=== PATIENT | male | born 1960 | race Caucasian/White ===

== ENCOUNTER 2017-01-10 22:48 | Emergency (ER) | payer OTHER ==
[~2017-01-10] VITALS: Ht 175.3 cm; Wt 108.9 kg
[~2017-01-10 22:48] MED LIST: HYDR-971 PO; HYDR25TA PO; ONDA4TAB10 SL; PRED20TA PO
--- NOTE | 2017-01-10 23:37 | ED.ADGEN ---
Past History Past Medical History: Bipolar, Other Past Surgical History: No Surgical History Smoking: Non-smoker Alcohol Use: Rarely Drug Use: None, Marijuana Adult General Chief Complaint Chief Complaint Upper eyelid swelling [facility] HPI This is a pleasant 56 showed male with history of bipolar disorder ADHD and depression who presents with a 2 day history of left upper eyelid swelling. He woke up from a nap when he felt some swelling to his upper eyelid he thought maybe he had scratched his eye was seen by his primary care doctor who prescribed him gentamicin ointment for suspected conjunctivitis despite being treated swelling and soft tissue itching gotten progressively worse. He noted increased redness and a localized lesion from a local envenomation from a bug bite. Patient denies any documented fevers but has had subjective chills. He is also a little tingling to his face over the soft tissue swelling is emanating from. He denies any direct trauma denies any visual loss denies any hearing loss denies any rash to his face. Patient denies any visual changes denies any oral lesions. He is also been on no oral antibiotics recently. Review of Systems Review of Systems Constitutional: He does state he has subjective fevers and chills. [] Eyes: . Soft tissue swelling above the eye without visual acuity changes. HENT: Denies nasal congestion or sore throat [] Respiratory: Denies cough or shortness of breath [] Cardiovascular: No additional information not addressed in HPI [] GI: Denies abdominal pain, nausea, vomiting, bloody stools or diarrhea [] : Denies dysuria or hematuria [] Musculoskeletal: Denies back pain or joint pain [] Integument: Denies rash or skin lesions [] Neurologic: Denies headache, focal weakness or sensory changes [] Endocrine: Denies polyuria or polydipsia [] Allergies Allergies Allergies Coded Allergies Type Severity Reaction Last Updated Verified ampicillin Allergy Intermediate Rash 01/30/15 Yes lithium Allergy Intermediate Hives 01/30/15 Yes Physical Exam Physical Exam Constitutional: Well developed, well nourished, slightly uncomfortable with noted soft tissue swelling superior to the left upper eyelid. HENT: Normocephalic, atraumatic, bilateral external ears normal, oropharynx moist, no oral exudates, nose normal. [] Eyes: PERRLA, EOMI, conjunctiva normal, noted erythema to the upper eyelid soft tissue swelling no obvious vesicles or tissue breakdown. He is a small lesion noted right above the eyelid that is not consistent with a stye. Patient has soft tissue swelling over the left appears zygoma as well is no proptosis Neck: Normal range of motion, no tenderness, supple, no stridor. [] Cardiovascular:Heart rate regular rhythm, no murmur [] Lungs & Thorax: Bilateral breath sounds clear to auscultation [] Abdomen: Bowel sounds normal, soft, no tenderness, no masses, no pulsatile masses. [] Skin: Is warm dry and intact without erythema. There is no Moura sign is no lesions to the inside of his ear. Back: No tenderness, no CVA tenderness. [] Extremities: No tenderness, no cyanosis, no clubbing, ROM intact, no edema. [] Neurologic: Alert and oriented X 3, normal motor function, normal sensory function, no focal deficits noted. [] Psychologic: Affect normal, judgement normal, mood normal. [] EKG EKG [] Radiology/Procedures Radiology/Procedures [] Course & Med Decision Making Course & Med Decision Making Pertinent Labs and Imaging studies reviewed. (See chart for details) Patient demonstrates early cellulitis to the upper eyelid on the left without evidence of periorbital cellulitis. There is no evidence of stye or internal ocular or eyelid infection associated meibomian glands. This is likely some associated with local envenomation from insect bite. Patient has mild paresthesias over the infraorbital nerve distribution. His oropharynx and TMs are clear there is no it's a concomitant vesicular disease. Abscess Patient be placed on oral antibiotics and pain medications and follow up with his primary care doctor in next 24-48 hours for wound care evaluation. Disposition discharged home in stable condition improved Final Impression Final Impression Facial cellulitis [] Problems: Dragon Disclaimer Dragon Disclaimer This electronic medical record was generated, in whole or in part, using a voice recognition dictation system. KRYSTAL VAZQUEZ MD Jan 10, 2017 23:37
[2017-01-10] MEDS ORDERED: DIPH25CA58 PO (23:54)
[2017-01-10] MEDS ORDERED: DOXY100C14 PO (23:54)
[2017-01-10] MEDS ORDERED: OLOP5DRO LEFTEYE (23:54)
[2017-01-11 00:11] VITALS: BP 140/94
== END 2017-01-11 00:06 | disposition home or self-care (01) ==
LOC: ER 22:48
DX: H00.034 Abscess of left upper eyelid (principal); F31.9 Bipolar disorder, unspecified; F90.9 Attention-deficit hyperactivity disorder, unspecified type; F12.10 Cannabis abuse, uncomplicated; Z88.1 Allergy status to other antibiotic agents; Z88.8 Allergy status to other drugs, medicaments and biological substances
CPT/HCPCS: 99283

== ENCOUNTER 2017-02-02 22:43 | Emergency (ER) | payer OTHER ==
[~2017-02-02] VITALS: Ht 175.3 cm; Wt 108.9 kg
[2017-02-02 22:43] VITALS: BP 151/100
[~2017-02-02 22:43] MED LIST changes: +DIPH25CA58 PO; +DOXY100C14 PO; +OLOP5DRO LEFTEYE
--- NOTE | 2017-02-02 23:27 | PHYS DOC ---
Past History Past Medical History: Bipolar, Depression Past Surgical History: No Surgical History Smoking: Non-smoker Alcohol Use: None Drug Use: Marijuana Adult General Chief Complaint Chief Complaint: INSECT BITE HPI HPI Patient is a 56 year old male who presents with skin problem. The patient states about 10 minutes prior to arrival he noticed a black spot on his left thigh & thought he had a tick attached to his leg. He attempted to burn it with a car rider but could not remove it. Denies fevers/chills, vomiting, erythema, warmth, swelling. Review of Systems Review of Systems Constitutional: Denies fever or chills HENT: Denies nasal congestion or sore throat Respiratory: Denies cough Cardiovascular: Denies chest pain GI: Denies abdominal pain, nausea, vomiting Musculoskeletal: Denies back pain or joint pain Integument: Reports insect bite Neurologic: Denies headache Allergies Allergies Allergies Coded Allergies Type Severity Reaction Last Updated Verified ampicillin Allergy Intermediate Rash 01/30/15 Yes lithium Allergy Intermediate Hives 01/30/15 Yes Physical Exam Physical Exam Constitutional: obese, no acute distress, non-toxic appearance. HENT: Normocephalic, atraumatic, bilateral external ears normal, oropharynx moist, nose normal. Eyes: conjunctiva normal, no discharge. Cardiovascular: no edema. Lungs & Thorax: no respiratory distress. Abdomen: nondistended. Skin: left thigh medially there is a skin tag with dark lesion, no insect visualized but skin appears burned. could be underlying mole. Extremities: No deformity Neurologic: Alert and oriented X 3 Current Patient Data Vital Signs Vital Signs Date Time Temp Pulse Resp B/P (MAP) Pulse Ox O2 Delivery O2 Flow Rate FiO2 02/02/17 22:43 98.0 90 18 97 Room Air EKG EKG [] Radiology/Procedures Radiology/Procedures [] Course & Med Decision Making Course & Med Decision Making Pertinent Labs and Imaging studies reviewed. (See chart for details) Patient concerned that he has a tick on his thigh. Certainly there is evidence of burn to the skin, but I do not visualize an insect that could be removed. Suspect possibly underlying mole. Recommend wound care with triple antibiotic, nonadherent dressing to prevent friction. Follow up with primary care, might need removal or biopsy. The patient is being discharged home in stable condition. [] Dragon Disclaimer Dragon Disclaimer This chart was dictated in whole or in part using Voice Recognition software in a busy, high-work load, and often noisy Emergency Department environment. It may contain unintended and wholly unrecognized errors or omissions. Departure Departure: Impression: Primary Impression: Skin tag Disposition: 01 HOME, SELF-CARE Condition: STABLE Referrals: MARQUEZ JOSÉ DO (PCP) Patient Instructions: Burn Care, [id number] Additional Instructions: You were seen in the emergency department today for burn & skin tag. Please keep clean & dry, apply triple antibiotic ointment twice daily, wear a bandage to protect from friction. Follow up with your primary care doctor. You might need a biopsy if there is a new mole on this area. Come back for hot/red/ swollen skin or any otherwise worsening condition. CADEN RENE MD February 02, 2017 23:27
== END 2017-02-02 23:30 | disposition home or self-care (01) ==
LOC: ER 22:43
DX: L91.8 Other hypertrophic disorders of the skin (principal); F12.10 Cannabis abuse, uncomplicated; F31.9 Bipolar disorder, unspecified; Z88.8 Allergy status to other drugs, medicaments and biological substances
CPT/HCPCS: 99281

== ENCOUNTER 2017-03-29 02:27 | Emergency (ER) | payer OTHER ==
[~2017-03-29] VITALS: Ht 175.3 cm; Wt 126.1 kg
[2017-03-29 02:35] VITALS: BP 125/84
--- NOTE | 2017-03-29 03:11 | PHYS DOC ---
General Chief Complaint: LOWER BACK PAIN OR INJURY Stated Complaint: BACK INJURY Time Seen by MD: 02:30 Source: patient Exam Limitations: no limitations Problems: History of Present Illness Initial Comments Patient is a 56-year-old male who comes to the ED private auto complaining of low back pain. 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 He states that while playing his guitar he was dancing and while doing so twisted his torso causing a pulling sensation and discomfort at his left low back. He says he assumed it was a muscle and it would improve however states that it has not gotten any better and currently complains of 7 out of 10 left-sided low back pain described as sharp and stabbing and worse with certain movements relieved somewhat by rest. Denies any other trauma no leg weakness no saddle anesthesia or incontinence. Patient has history of marijuana abuse but is currently on probation and denies recent use. [id number]-stmdusp medications have not helped. Timing/Duration: 1 week Severity: severe Modifying Factors: worse with movement, improves with rest Associated Symptoms: other Allergies: Coded Allergies: ampicillin (Verified Allergy, Intermediate, Rash, 03/29/17) lithium (Verified Allergy, Intermediate, Hives, 03/29/17) Past Medical History Medical History: other (insomnia, bipolar disorder, ADHD, glaucoma, questionable sleep apnea) Surgical History: noncontributory Social History Smoker: non-smoker Alcohol: none Drugs: marijuana (on probation, no current usage due to testing with probation) Review of Systems Constitutional: denies chills, denies diaphoresis, denies fever, denies malaise Respiratory: denies cough, denies shortness of breath Cardiovascular: denies chest pain, denies palpitations Gastrointestinal: denies diarrhea, denies nausea, denies vomiting Genitourinary: denies dysuria, denies frequency, denies hematuria Musculoskeletal: see HPI, denies joint swelling, denies neck pain Psychiatric/Neurological: denies headache, denies numbness, denies paresthesia , denies pre-existing deficit, denies tingling, denies weakness Hematologic/Lymphatic: denies blood clots, denies easy bleeding, denies easy bruising Physical Exam General Appearance: no apparent distress, obese Ear, Nose, Throat: normal ENT inspection, normal pharynx Neck: non-tender, supple Respiratory: normal breath sounds, no respiratory distress Cardiovascular: normal peripheral pulses, regular rate, rhythm Gastrointestinal: non tender, soft Back: no CVA tenderness, no vertebral tenderness Extremities: non-tender, normal inspection Neurologic/Psychiatric: conference services coordinator II-XII nml as tested, no motor/sensory deficits, alert, normal mood/affect, oriented x 3, other (DTRs/strength/sensory equal and intact bilaterally lower extremity, negative straight leg raise bilaterally) Skin: normal color, warm/dry Orders, Labs, Meds Patient agrees imaging not indicated as no trauma. Toradol and Norflex given in the emergency department. Patient requests discharge prior to medication efficacy and was given a Tylenol 3 starter pack for very short-term use should he need breakthrough medications overnight. He agrees to early PCP follow-up and expresses agreement and understanding of the treatment plan. Departure Time of Disposition: 03:08 Disposition: 01 HOME, SELF-CARE Diagnosis: low back strain Condition: GOOD Patient Instructions: Low Back Strain with Rehab-SportsMed Additional Instructions: Rest, activity as tolerated. Heating pad to affected area 15-20 minutes 4-6 times daily followed by gentle stretching. OTC tylenol/ibuprofen as needed. Rx: prednisone, cyclobenzaprine Follow up with your doctor later today if not better. Return to ED with new or changing symptoms. MIREILLE PULIDO DO Mar 29, 2017 03:11
[2017-03-29] MEDS ORDERED: ORPHENADRINE CITRATE 60 MG/2 ML VIAL. IM ONE (03:30)
[2017-03-29] MEDS ORDERED: KETOROLAC 60 MG/2 ML VIAL. IM ONE (03:30)
[2017-03-29] MEDS ORDERED: ACETAMINOPHEN/CODEINE 300/30MG TABLET PO ONE (03:30)
== END 2017-03-29 03:34 | disposition home or self-care (01) ==
LOC: ER 02:27
DX: S39.012A Strain of muscle, fascia and tendon of lower back, initial encounter (principal); G47.00 Insomnia, unspecified; F90.9 Attention-deficit hyperactivity disorder, unspecified type; F31.9 Bipolar disorder, unspecified; F12.10 Cannabis abuse, uncomplicated; H40.9 Unspecified glaucoma; Z88.1 Allergy status to other antibiotic agents; Z88.8 Allergy status to other drugs, medicaments and biological substances; X58.XXXA Exposure to other specified factors, initial encounter; Y93.41 Activity, dancing; Y99.8 Other external cause status; Y92.89 Other specified places as the place of occurrence of the external cause
CPT/HCPCS: 96372; 99284; J1885; J2360

== ENCOUNTER → 2017-09-11 | Outpatient (CLI) | payer OTHER ==
--- NOTE | 2017-09-11 15:23 | RAD ---
Sonography of the right buttock Clinical indications: The patient had a splinter in the right buttock 5 years ago. The patient pulled the splinter out and thinks a little piece may still remain in the right buttock area. One week ago, a pimple developed in that same area. There is some pain associated with this pimple but no drainage is evident. Findings: High-resolution sonography of the area of clinical concern of the right buttock over the region of the pimple was performed. No subcutaneous abscess or fluid collection is seen. No echodensity with acoustic shadowing is seen to indicate definite foreign body by sonography. IMPRESSION: Unremarkable study.
== END | disposition home or self-care (01) ==
LOC: US 10:02
PROVIDERS: ATTEND General Practice
DX: L03.317 Cellulitis of buttock (principal); F12.10 Cannabis abuse, uncomplicated
CPT/HCPCS: 76881

== ENCOUNTER 2018-01-18 16:16 | Emergency (ER) | payer OTHER ==
[~2018-01-18] VITALS: Ht 175.3 cm; Wt 126.1 kg
[2018-01-18 16:17] VITALS: BP 134/89
--- NOTE | 2018-01-20 00:16 | ED.ADGEN ---
Past History Past Medical History: Bipolar, Other Past Surgical History: No Surgical History Smoking: Non-smoker Alcohol Use: Rarely Drug Use: None Adult General Chief Complaint Chief Complaint Skin rash HPI HPI Patient is a 57-year-old male with history of bipolar presents with recent tick bite 3 days ago to left proximal thigh and discovered and light annular rash surrounding tick bite noticed today. No fever chills, arthralgias, sore throat. Patient believes to be embedded no longer than several hours. Patient successfully removed take after was discovered. No other symptoms or complaints [] Review of Systems Review of Systems Review symptoms as per history of present illness. All other review symptoms are negative. All other systems were reviewed and found to be within normal limits, except as documented in this note. Allergies Allergies Allergies Coded Allergies Type Severity Reaction Last Updated Verified ampicillin Allergy Intermediate Rash 03/29/17 Yes lithium Allergy Intermediate Hives 03/29/17 Yes Physical Exam Physical Exam Constitutional: Well developed, well nourished, no acute distress, non-toxic appearance. [] HENT: Normocephalic, atraumatic, bilateral external ears normal, oropharynx moist, no oral exudates, nose normal. [] Eyes: PERRLA, EOMI, conjunctiva normal, no discharge. [] Neck: Normal range of motion, no tenderness, supple, no stridor. [] Cardiovascular:Heart rate regular rhythm, no murmur [] Lungs & Thorax: Bilateral breath sounds clear to auscultation [] Skin: Left proximal medial thigh, 2 red macules consistent with tick bites. Distal macules surrounded by light annular rash approximately 2 cm in diameter. No induration, streaking or drainage. No embedded tick parts identified. [] [] Extremities: No tenderness, no cyanosis, no clubbing, ROM intact, no edema. [] Neurologic: Alert and oriented X 3, normal motor function, normal sensory function, no focal deficits noted. [] Psychologic: Affect normal, judgement normal, mood normal. [] Current Patient Data Vital Signs Vital Signs Date Time Temp Pulse Resp B/P (MAP) Pulse Ox O2 Delivery O2 Flow Rate FiO2 01/18/18 16:17 98.0 78 16 97 Room Air EKG EKG [] Radiology/Procedures Radiology/Procedures [] Course & Med Decision Making Course & Med Decision Making Pertinent Labs and Imaging studies reviewed. (See chart for details) [Recent tick bite with annular rash. Empiric antibiotics prescribed. Recommendations are for her PCP follow-up.] Final Impression Final Impression [1. tick bite, left thigh 2. rash] Problems: Dragon Disclaimer Dragon Disclaimer This electronic medical record was generated, in whole or in part, using a voice recognition dictation system. ERIC CORREA DO January 20, 2018 00:16
== END 2018-01-18 16:55 | disposition home or self-care (01) ==
LOC: ER 16:16
DX: S70.362A Insect bite (nonvenomous), left thigh, initial encounter (principal); R21 Rash and other nonspecific skin eruption; F31.9 Bipolar disorder, unspecified; Z88.8 Allergy status to other drugs, medicaments and biological substances; W57.XXXA Bitten or stung by nonvenomous insect and other nonvenomous arthropods, initial encounter; Y93.89 Activity, other specified; Y99.8 Other external cause status; Y92.89 Other specified places as the place of occurrence of the external cause
CPT/HCPCS: 99283

== ENCOUNTER 2018-07-22 17:34 | Emergency (ER) | payer OTHER ==
[~2018-07-22] VITALS: Ht 175.3 cm; Wt 117.9 kg
[2018-07-22 17:53] VITALS: BP 156/110
[2018-07-22] MEDS ORDERED: HYDR-2758 PO (18:18)
[2018-07-22] MEDS ORDERED: MELO7.5T5 PO (18:18)
[2018-07-22] MEDS ORDERED: CYCL-331 PO (18:18)
--- NOTE | 2018-07-22 18:21 | PHYS DOC ---
Adult General Chief Complaint Chief Complaint back pain HPI HPI 58 years old gentleman presented emergency department with back pain described sharp constant pain in the right side after lifting about 25 pounds week ago pain worse on exertion related to the right lower leg no numbness or weakness Review of Systems Review of Systems Constitutional: Denies fever or chills [] Eyes: Denies change in visual acuity, redness, or eye pain [] HENT: Denies nasal congestion or sore throat [] Respiratory: Denies cough or shortness of breath [] Cardiovascular: No additional information not addressed in HPI [] GI: Denies abdominal pain, nausea, vomiting, bloody stools or diarrhea [] : Denies dysuria or hematuria [][] Integument: Denies rash or skin lesions [] Neurologic: Denies headache, focal weakness or sensory changes [] Endocrine: Denies polyuria or polydipsia [] All other systems were reviewed and found to be within normal limits, except as documented in this note. Current Medications Current Medications Current Medications Medications (Trade) Dose Ordered Sig/Violetta Start Time Stop Time Status Last Admin Dose Admin Ketorolac Tromethamine (Toradol Im) 60 mg 1X ONCE 07/22/18 18:30 1118 18:31 Morphine Sulfate (Morphine 10mg Syringe) 10 mg 1X ONCE 07/22/18 18:30 07/22/18 18:31 Allergies Allergies Allergies Coded Allergies Type Severity Reaction Last Updated Verified ampicillin Allergy Intermediate Rash 03/29/17 Yes lithium Allergy Intermediate Hives 03/29/17 Yes Physical Exam Physical Exam Constitutional: Well developed, well nourished, no acute distress, non-toxic appearance. [] HENT: Normocephalic, atraumatic, bilateral external ears normal, oropharynx moist, no oral exudates, nose normal. [] Eyes: PERRLA, EOMI, conjunctiva normal, no discharge. [] Neck: Normal range of motion, no tenderness, supple, no stridor. [] Cardiovascular:Heart rate regular rhythm, no murmur [] Lungs & Thorax: Bilateral breath sounds clear to auscultation [] Abdomen: Bowel sounds normal, soft, no tenderness, no masses, no pulsatile masses. [] Skin: Warm, dry, no erythema, no rash. [] Back: tenderness lumbar area no CVA tenderness. [] Extremities: No tenderness, no cyanosis, no clubbing, ROM intact, no edema. [] Neurologic: Alert and oriented X 3, normal motor function, normal sensory function, no focal deficits noted. [] Psychologic: Affect normal, judgement normal, mood normal. [] Current Patient Data Vital Signs Vital Signs Date Time Temp Pulse Resp B/P (MAP) Pulse Ox O2 Delivery O2 Flow Rate FiO2 07/22/18 17:53 98.5 86 18 98 Room Air EKG EKG [] Radiology/Procedures Radiology/Procedures [] Course & Med Decision Making Course & Med Decision Making Pertinent Labs and Imaging studies reviewed. (See chart for details) [] Final Impression Final Impression Patient to follow-up with his primary care provider with MRI[] Problems: (1) Sciatica of right side Dragon Disclaimer Dragon Disclaimer This electronic medical record was generated, in whole or in part, using a voice recognition dictation system. NHAN NGUYEN MD Jul 22, 2018 18:21
[2018-07-22] MEDS ORDERED: KETOROLAC 60 MG/2 ML VIAL. IM ONE (18:30)
[2018-07-22] MEDS ORDERED: MORPHINE SULFATE 10 MG/ML SYRINGE. IM ONE (18:30)
== END 2018-07-22 18:41 | disposition home or self-care (01) ==
LOC: ER 17:34
DX: M54.41 Lumbago with sciatica, right side (principal); Z88.1 Allergy status to other antibiotic agents; Z88.8 Allergy status to other drugs, medicaments and biological substances
CPT/HCPCS: 96372; 99284; J1885; J2270

== ENCOUNTER → 2018-09-25 | Outpatient (CLI) | payer OTHER ==
[~2018-09-25] MED LIST changes: +CYCL-331 PO; +HYDR-2155 PO; +HYDR-3165 PO; -HYDR-971 PO; +MELO7.5T5 PO
--- NOTE | 2018-09-25 15:46 | RAD ---
Examination: 2 views of the right knee and 5 views of the lumbar spine HISTORY: History of chronic right knee pain, low back pain, radiculopathy COMPARISON: None available FINDINGS: There is mild joint space loss identified in the medial, lateral, patellofemoral compartments. There is no acute fracture or dislocation identified. The lumbar vertebral body heights are maintained. Mild intervertebral disc height loss identified in the lower thoracic and in the lumbar spine. No evidence of listhesis identified. The facets are well aligned. IMPRESSION: 1. Mild degenerative changes lumbar spine. 2. Mild tricompartmental degenerative changes right knee Electronically signed by: Jonnie Callejas MD (09/25/2018 3:42 PM) [id number]
== END | disposition home or self-care (01) ==
LOC: RAD 15:13
DX: M47.26 Other spondylosis with radiculopathy, lumbar region (principal); M17.11 Unilateral primary osteoarthritis, right knee
CPT/HCPCS: 72110; 73560

== ENCOUNTER 2020-11-06 12:41 | Emergency (ER) | payer OTHER ==
[~2020-11-06] VITALS: Ht 175.3 cm; Wt 123.0 kg
[2020-11-06] MEDS ORDERED: HYDR25CA75 PO (13:02)
[2020-11-06] MEDS ORDERED: CEPH500T PO (13:02)
--- NOTE | 2020-11-06 13:02 | PHYS DOC ---
Past History Past Medical History: Bipolar, Other Additional Past Medical Histor: ADHD Past Surgical History: No Surgical History Smoking: Non-smoker Alcohol Use: Rarely Drug Use: None Adult General Chief Complaint Chief Complaint: INSECT BITE HPI HPI Patient is a 60-year-old male presents emergency department complaining of "I think I have a spider bite ". Patient states that he was at his friend's house petting his friend's dog and noticed a bite nika on his left distal forearm and right middle finger knuckle. Patient is concerned that he may have been bitten by a brown recluse spider or may be a flea bite. Patient states the areas itch, denies any drainage from either bite site of concern, denies pain at the bite site stating that itchy and red. Patient denies any numbness or tingling. Patient denies any swelling of his extremities. Patient denies any other rashes of the skin. Patient denies any shortness of breath, chest pain, cough, congestion. Patient denies any nausea, vomiting, or diarrhea. Patient does not recall seeing any insects nor spiders actually bite him. Patient states that he did not start itching until he went home that Saturday night. Patient denies any other physical complaints or physical concerns. Patient denies being a cigarette smoker, denies drinking alcohol, denies illicit drug use. Patient states he only takes Ritalin for ADHD. Patient reports a allergy to ampicillin and lithium. Review of Systems Review of Systems 14 body systems of review of systems have been reviewed. See HPI for pertinent positives and negative responses, otherwise all other systems are negative, nonpertinent or noncontributory. Allergies Allergies Allergies Coded Allergies Type Severity Reaction Last Updated Verified ampicillin Allergy Intermediate Rash 03/29/17 Yes lithium Allergy Intermediate Hives 03/29/17 Yes Physical Exam Physical Exam Constitutional: Well developed, well nourished, no acute distress, non-toxic appearance. HENT: Normocephalic, atraumatic, bilateral external ears normal, oropharynx moist, no oral exudates, nose normal. Eyes: PERRLA, EOMI, conjunctiva normal, no discharge. Neck: Normal range of motion, no tenderness, supple, no stridor. Cardiovascular:Heart rate regular rhythm, no murmur Lungs & Thorax: Bilateral breath sounds clear to auscultation Abdomen: Bowel sounds normal, soft, no tenderness, no masses, no pulsatile masses. Skin: Warm, dry, no erythema, no rash. Except for patient's left distal medial forearm just proximal to the ulnar stylus process there is a 2 cm in diameter area of erythema, nondraining cellulitic in nature, no central punctum, no purulence. Patient complains of pruritus. Also right middle finger dorsal aspect at MIP joint 1 cm in diameter area of erythema, no central punctum, no drainage, no swelling, patient complains of pruritus. Back: No tenderness, no CVA tenderness. [] Extremities: No tenderness, no cyanosis, no clubbing, ROM intact, no edema. [] Neurologic: Alert and oriented X 3, normal motor function, normal sensory function, no focal deficits noted. [] Psychologic: Affect normal, judgement normal, mood normal. [] Current Patient Data Vital Signs Vital Signs Date Time Temp Pulse Resp B/P (MAP) Pulse Ox O2 Delivery O2 Flow Rate FiO2 11/06/20 12:41 79.9 64 16 125/72 (89) 99 Room Air EKG EKG [] Radiology/Procedures Radiology/Procedures [] Heart Score Risk Factors: Risk Factors: DM, Current or recent (<one month) smoker, HTN, HLP, family history of CAD, obesity. Risk Scores: Risk Factors: DM, Current or recent (<one month) smoker, HTN, HLP, family history of CAD, obesity. Course & Med Decision Making Course & Med Decision Making Pertinent Labs and Imaging studies reviewed. (See chart for details) 60-year-old male, vital signs reviewed, presents emergency department complaining of insect bite or spider bite to his extremities. Physical examination concerning for cellulitic process, consistent with insect bite, there was no fluctuant abscess appreciated, no draining. Patient's complaint of pruritus, discussed with patient will start on Keflex 4 times a day for cellulitic areas and also prescribe hydroxyzine for itching. Patient gave verbal understanding of discharge home instructions, antibiotic use, hydroxyzine medication use, follow-up with primary care soon for ongoing problems, return to ER precautions or concerns. Patient discharged home without incident. Dragon Disclaimer Dragon Disclaimer This electronic medical record was generated, in whole or in part, using a voice recognition dictation system. Departure Departure: Impression: Primary Impression: Cellulitis Additional Impressions: Insect bite Itching with irritation Disposition: 01 DC HOME SELF CARE/HOMELESS Condition: GOOD Referrals: STONEY CHOI (PCP) Patient Instructions: Cellulitis Additional Instructions: Please take medications as prescribed, follow-up with your primary care doctor for ongoing symptoms, return to the emergency department for worsening symptoms or other concerns. EMERGENCY DEPARTMENT GENERAL DISCHARGE INSTRUCTIONS Thank you for coming to [facility] (ED) today and trusting us with you care. We trust that you had a positivie experience in our Emergency Department. If you wish to speak to the department management, you may call the director at [phone]. YOUR FOLLOW UP INSTRUCTIONS ARE FOLLOWS: 1. Do you have a private Doctor? If you do not have a private doctor, please ask for a resource list of physicians or clinics that may be able to assist you with follow up care. 2. The Emergency Physician has interpreted your x-rays. The X-Ray specialist will also review them. If there is a change in the findings, you will be notified in 48 hours when at all possible. 3. A lab test or culture has been done, your results will be reviewed and you will be notified if you need a change in treatment. ADDITIONAL INSTRUCTIONS AND INFORMATION: 1. Your care today has been supervised by a physician who is specially trained in emergency care. Many problems require more than one evaluation for a complete diagnosis and treatment. We recommend that you schedule your follow up appointment as recommended to ensure complete treatment of you illness or injury. If you are unable to obtain follow up care and continue to have a problem, or if your condition worsens, we recommend that you return to the ED. 2. We are not able to safely determine your condition over the phone nor are we able to give sound medical advice over the phone. For these safety reasons, if you call for medical advice we will ask you to come to the ED for further evaluation. 3. If you have any questions regarding these discharge instructions please call the ED at [phone]. SAFETY INFORMATION: In the interest of safety, wellness, and injury prevention; we encourage you to wear your sealbelt, if you smoke; quite smoking, and we encourage family to use a protective helmet for bicycling and other sporting events that present an increased risk for head injury. IF YOUR SYMPTOMS WORSEN OR NEW SYMPTOMS DEVELOP, OR YOU HAVE CONCERNS ABOUT YOUR CONDITION; OR IF YOUR CONDITION WORSENS WHILE YOU ARE WAITING FOR YOUR FOLLOW UP APPOINTMENT; EITHER CONTACT YOUR PRIMARY CARE DOCTOR, THE PHYSICIAN WHOSE NAME AND NUMBER YOU WERE GIVEN, OR RETURN TO THE ED IMMEDIATELY. Scripts Hydroxyzine Pamoate (HYDROXYZINE PAMOATE) 25 Mg Capsule 25 MG PO PRN Q6-8HRS PRN for ITCHING, #15 CAP 0 Refills Prov: NABILA CORDOVA APRN 11/06/20 Cephalexin (CEPHALEXIN) 500 Mg Tablet 1 TAB PO QID for SKIN INFECTION, #40 TAB 0 Refills Prov: NABILA CORDOVA APRN 11/06/20 Problem Qualifiers Primary Impression: Cellulitis Site of cellulitis: extremity Site of cellulitis of extremity: upper extremity Laterality: left Qualified Codes: L03.114 - Cellulitis of left upper limb Additional Impressions: Insect bite Encounter type: initial encounter Site of insect bite: forearm Laterality: left Qualified Codes: S50.862A - Insect bite (nonvenomous) of left forearm, initial encounter; W57.XXXA - Bitten or stung by nonvenomous insect and other nonvenomous arthropods, initial encounter NABILA CORDOVA APRN Nov 06, 2020 13:02
== END 2020-11-06 13:04 | disposition home or self-care (01) ==
LOC: ER 12:41
DX: S50.862A Insect bite (nonvenomous) of left forearm, initial encounter (principal); L03.114 Cellulitis of left upper limb; Z88.1 Allergy status to other antibiotic agents; Z88.8 Allergy status to other drugs, medicaments and biological substances; W57.XXXA Bitten or stung by nonvenomous insect and other nonvenomous arthropods, initial encounter; Y93.89 Activity, other specified; Y92.89 Other specified places as the place of occurrence of the external cause; Y99.8 Other external cause status
CPT/HCPCS: 99283

== ENCOUNTER 2021-07-26 13:41 | Emergency (ER) | payer OTHER ==
[~2021-07-26] VITALS: Ht 175.3 cm; Wt 123.0 kg
[~2021-07-26 13:41] MED LIST changes: +CEPH500T PO; -CYCL-331 PO; +CYCL10TA19 PO; +DOXY-181 PO; -DOXY100C14 PO; +HYDR25CA75 PO
[2021-07-26 13:49] VITALS: BP 148/103
[2021-07-26] MEDS: KETOROLAC 60 MG/2 ML VIAL. IM ONE (14:24)
[2021-07-26] MEDS: ORPHENADRINE CITRATE 60 MG/2 ML VIAL. IM ONE (14:24)
--- NOTE | 2021-07-26 15:03 | RAD ---
EXAM: AP pelvis, AP and lateral views right hip DATE: 07/26/2021 2:22 PM INDICATION: Reason: fall [id number] / Spl. Instructions: / History: . COMPARISON: No Prior FINDINGS: No evidence of acute fracture or dislocation. Joint spaces are preserved without significant degenera tive/proliferative change. No pubic symphysis or SI joint diastases. IMPRESSION: 1. No acute fracture or dislocation. If there is persistent clinical concern for fracture, follow-up radiographs in 10-14 days is recommended. Electronically signed by: Abelino Holden MD (07/26/2021 3:01 PM) [id number]
--- NOTE | 2021-07-26 15:05 | RAD ---
EXAM: AP, oblique, lateral and sunrise views of the right knee. DATE: 07/26/2021 2:22 PM INDICATION: Reason: fall [id number] / Spl. Instructions: / History: COMPARISON: No Prior FINDINGS: No acute fracture or dislocation. Joint spaces are preserved. Small tricompartmental osteophytes. Arben tral patellar tracking. IMPRESSION: No acute fracture or dislocation. Electronically signed by: Abelino Holden MD (07/26/2021 3:02 PM) [id number]
[2021-07-26] MEDS ORDERED: ORPH-16 PO (15:38)
--- NOTE | 2021-07-26 15:38 | PHYS DOC ---
Past History Past Medical History: Bipolar, Other Additional Past Medical Histor: ADHD, chronic pain (RASHAUN JAMES) Past Surgical History: No Surgical History (RASHAUN JAMES) Smoking: Non-smoker Alcohol Use: Occasionally Drug Use: None (RASHAUN JAMES) General Adult EDM: Chief Complaint: KNEE INJURY HPI: HPI: Patient is a 61 year old male who presents with right hip and right knee pain for the past month. Patient states that his pain has made it difficult for him to ambulate, but he is able to do so. Patient went fishing about 1 month ago and fell onto his right side. He has seen his primary care provider about this pain, but did not include the history of falling during his evaluation. He was told by his primary care provider that it was likely due to sciatica. He was instructed to see a pain specialist. Patient has no other complaints at this time. (RASHAUN JAMES) Review of Systems: Review of Systems: Constitutional: Denies fever or chills Eyes: Denies change in visual acuity HENT: Denies nasal congestion or sore throat Respiratory: Denies cough or shortness of breath Cardiovascular: Denies chest pain or edema GI: Denies abdominal pain, nausea, vomiting, bloody stools or diarrhea : Denies dysuria, hematuria, incontinence, saddle anesthesia Musculoskeletal: See HPI Integument: Denies rash Neurologic: Denies headache, focal weakness or sensory changes (RASHAUN JAMES) Current Medications: Current Meds: Current Medications Medications (Trade) Dose Ordered Sig/Violetta Start Time Stop Time Status Last Admin Dose Admin Ketorolac Tromethamine (Toradol Im) 60 mg 1X ONCE 07/26/21 14:15 07/26/21 14:17 DC 07/26/21 14:24 60 MG Orphenadrine Citrate (Norflex) 60 mg 1X ONCE 07/26/21 14:15 07/26/21 14:17 DC 07/26/21 14:24 60 MG (RASHAUN JAMES) Allergies: Allergies: Allergies Coded Allergies Type Severity Reaction Last Updated Verified ampicillin Allergy Intermediate Rash 03/29/17 Yes lithium Allergy Intermediate Hives 03/29/17 Yes (RASHAUN JAMES) Physical Exam: PE: Constitutional: Well developed, well nourished, no acute distress, non-toxic appearance. Cardiovascular: Heart rate regular rhythm, no murmur. Lungs & Thorax: Bilateral breath sounds clear to auscultation. Back: No step-offs, no tenderness, no CVA tenderness. Extremities: Right hip flexion and extension is painful but active range of motion is intact. No tenderness, no cyanosis, no clubbing, ROM intact, no edema, neurovascular intact. Neurologic: Alert and oriented x4, motor function grossly intact, sensory function grossly intact, no focal deficits noted. (RASHAUN JAMES) Current Patient Data: Vital Signs: Vital Signs Date Time Temp Pulse Resp B/P (MAP) Pulse Ox O2 Delivery O2 Flow Rate FiO2 07/26/21 13:49 98.3 93 16 148/103 (118) 99 Room Air (RASHAUN JAMES) Radiology/Procedures: Radiology/Procedures: PROCEDURE: KNEE RIGHT 4V EXAM: AP, oblique, lateral and sunrise views of the right knee. DATE: 07/26/2021 2:22 PM INDICATION: Reason: fall [id number] / Spl. Instructions: / History: COMPARISON: No Prior FINDINGS: No acute fracture or dislocation. Joint spaces are preserved. Small tricompartmental osteophytes. Neutral patellar tracking. IMPRESSION: No acute fracture or dislocation. Electronically signed by: Abelino Holden MD (07/26/2021 3:02 PM) [id number] PROCEDURE: HIP RIGHT 2V WITH PELVIS EXAM: AP pelvis, AP and lateral views right hip DATE: 07/26/2021 2:22 PM INDICATION: Reason: fall [id number] / Spl. Instructions: / History: . COMPARISON: No Prior FINDINGS: No evidence of acute fracture or dislocation. Joint spaces are preserved without significant degenerative/proliferative change. No pubic symphysis or SI joint diastases. IMPRESSION: 1. No acute fracture or dislocation. If there is persistent clinical concern for fracture, follow-up radiographs in 10-14 days is recommended. Electronically signed by: Abelino Holden MD (07/26/2021 3:01 PM) [id number] (RASHAUN JAMES) Heart Score: C/O Chest Pain: No (RASHAUN JAMES) Course & Med Decision Making: Course & Med Decision Making Pertinent Labs and Imaging studies reviewed. (See chart for details) Patient has been able to ambulate since his fall 1 month ago and has seen his primary care provider since the fall. X-rays ordered today to rule out any dislocation or occult fracture. No acute abnormalities are seen on x-ray images. Patient is aware that x-ray imaging is limited to bony injury, and he will need further imaging for any soft tissue or nerve pathology. Patient has an appointment with pain specialist Dr. Vasquez 2 days from today. Patient did express some concern about insurance not covering his visit with Dr. Vasquez. I advised him to keep his appointment, and Dr. Vasquez will be included as a referral on today's discharge paperwork. Patient is instructed to return the emergency department if his pain becomes unbearable at home. (RASHAUN JAMES) Dragon Disclaimer: Dragon Disclaimer: This electronic medical record was generated, in whole or in part, using a voice recognition dictation system. (RASHAUN JAMES) Departure Departure: Impression: Primary Impression: Chronic right hip pain Additional Impression: Right knee pain Qualified Codes: M25.561 - Pain in right knee Disposition: HOME / SELF CARE / HOMELESS Condition: STABLE Referrals: STONEY CHOI (PCP) Patient Instructions: Hip Pain Additional Instructions: As discussed, keep your appointment with Dr. Vasquze on Saturday. Also, follow-up with your primary care provider regarding today's visit. Please return to the emergency department if your pain becomes unmanageable at home. Scripts Orphenadrine Citrate (ORPHENADRINE CITRATE) 100 Mg Tablet.er 1 TAB PO BID for muscle spasm, #10 TAB 1 Refill Prov: RASHAUN JAMES 07/26/21 Attending Signature Attending Signature I have reviewed the PA/AIR CARRIER INSPECTOR's note and plan of care. I was available for c onsultation as needed during the patient's visit in the emergency department. I agree with the clinical impression, plan, and disposition. (NABILA COLLAZO DO) RASHAUN JAMES Jul 26, 2021 15:38 NABILA COLLAZO DO Jul 26, 2021 22:15
== END 2021-07-26 15:45 | disposition home or self-care (01) ==
LOC: ER 13:41
DX: G89.29 Other chronic pain (principal); M25.551 Pain in right hip; M25.561 Pain in right knee; F31.9 Bipolar disorder, unspecified; F90.9 Attention-deficit hyperactivity disorder, unspecified type; Z88.1 Allergy status to other antibiotic agents; Z88.8 Allergy status to other drugs, medicaments and biological substances
CPT/HCPCS: 73502; 73564; 96372; 99284; J1885; J2360